=== PATIENT | male | born 1970 | race Caucasian/White ===

== ENCOUNTER 2022-05-06 07:40 | Emergency (ER) | payer OTHER ==
[2022-05-06 08:32] LABS: HEMOGLOBIN 18.3 gm/dl (14.0-17.5); RED BLOOD COUNT 5.94 M/UL (4.20-5.50); WHITE BLOOD COUNT 11.6 K/UL (4.5-11.0)
[2022-05-06 09:03] LABS: BUN/CREATININE RATIO 17 (0-10)
[2022-05-06] MEDS ORDERED: PREDNISONE20 MG PO (12:23)
[2022-05-06] MEDS ORDERED: EPIPEN 2-P0.3 MG/0.3 INJ (12:23)
[2022-05-06] MEDS ORDERED: LISINOPRIL40 MG PO (12:35)
[2022-05-06] MEDS ORDERED: LEVOTHYROXINE75 MCG PO (12:36)
[2022-05-06] MEDS ORDERED: ASPIRIN EC81 MG PO (12:36)
[2022-05-06] MEDS ORDERED: CELECOXIB200 MG PO (12:36)
== END 2022-05-06 12:40 | disposition left against medical advice (07) ==
LOC: ER1 07:40 → CDU 11:51 → ER1 12:40
PROVIDERS: Family Medicine
DX: T78.3XXA Angioneurotic edema, initial encounter (principal); E66.01 Morbid (severe) obesity due to excess calories; F19.90 Other psychoactive substance use, unspecified, uncomplicated
CPT/HCPCS: 36430; 71045; 80053; 82550; 82553; 83605; 83880; 84484; 85025; 85610; 86160; 86900; 86901; 86927; 96372; 96374; 96375; 99283; J0171; J1200; J2930; P9017